=== PATIENT | male | born 2000 | race Caucasian/White ===

== ENCOUNTER → 2020-11-27 | Outpatient (CLI) | payer OTHER ==
--- NOTE | 2020-11-27 12:34 | REP ---
INDICATION: 1 CM TENDER LUMP,RT AREOLA. COMPARISON: None. TECHNIQUE: Right breast subareolar started sonography. Left-sided subareolar scanning is performed for comparison purposes. FINDINGS: There is a retroareolar hypoechoic non masslike area noted on the right consistent with gynecomastia. This area measures approximately 2.4 cm in greatest diameter. Low shear wave elastography number, 30 K PA. No abnormality is seen on the left. IMPRESSION: BI-RADS category 2 benign findings. Findings consistent with mild unilateral right-sided gynecomastia. Clinical follow-up is advised. Repeat sonography may be warranted if symptoms progress. <Electronically signed by Mal Vizcarra > 11/27/20 2583
== END ==
LOC: M WHC 11:51
PROVIDERS: ATTEND Physician Assistant Medical
DX: N64.89 Other specified disorders of breast (principal)

== ENCOUNTER 2023-10-10 18:25 | Emergency (ER) | payer OTHER ==
[~2023-10-10] VITALS: Ht 185.4 cm; Wt 68.9 kg
[2023-10-10 18:26] VITALS: BP 131/77; TEMP 97.9; O2SAT 98
== END 2023-10-10 20:30 | disposition home or self-care (01) ==
LOC: M ED 18:25
DX: S93.402A Sprain of unspecified ligament of left ankle, initial encounter (principal); W19.XXXA Unspecified fall, initial encounter; Y92.9 Unspecified place or not applicable; Y93.89 Activity, other specified; Y99.0 Civilian activity done for income or pay; F17.200 Nicotine dependence, unspecified, uncomplicated